=== PATIENT | male | born 1960 | race Caucasian/White ===

== ENCOUNTER → 2017-05-09 | Outpatient (CLI) | payer OTHER | LOC: FIMAGING 17:01 | PROVIDERS: ATTEND Internal Medicine | DX: J98.4 Other disorders of lung (principal) ==

== ENCOUNTER 2018-04-16 07:15 | Day surgery (SDC) | payer OTHER ==
[2018-04-16] MEDS ORDERED: NS 1,000 ML IV ONE (07:17)
[2018-04-16] MEDS ORDERED: MIDAZOLAM 2 MG/2 ML VIAL IVP ONE (07:19)
[2018-04-16] MEDS ORDERED: ATROPINE SULFATE 1 MG/10 ML SYR IVP ONE (07:19)
[2018-04-16] MEDS ORDERED: fentaNYL 100 MCG/2 ML INJ IVP ONE (07:19)
[2018-04-16] MEDS ORDERED: BENZOCAINE UNIT DOSE SPRAY HURRICAINE MM ONE (07:19)
[2018-04-16] MEDS ORDERED: NS 500 ML IV ONE (07:19)
--- NOTE | 2018-04-16 07:54 | PDANEPAE ---
ANE History of Present Illness shimon/cv ANE Past Medical History - Cardiovascular History Hx Hypertension: Yes Hx Arrhythmias: Yes Hx Chest Pain: No Hx Coronary Artery / Peripheral Vascular Disease: No Hx CHF / Valvular Disease: No Hx Palpitations: No - Pulmonary History Hx COPD: No Hx Asthma/Reactive Airway Disease: No Hx Recent Upper Respiratory Infection: Yes Hx Oxygen in Use at Home: No Hx Sleep Apnea: Yes - Neurologic History Hx Cerebrovascular Accident: No Hx Seizures: No Hx Dementia: No - Endocrine History Hx Diabetes: No Hypothyroid: No Hyperthyroid: No Obesity: mild - Renal History Hx Renal Disorders: No - Liver History Hx Hepatic Disorders: No - GI History GERD Comment: gerd controlled with omeprazole ANE Review of Systems Review of Systems: - Exercise capacity Exercise capacity: >=4 METS ANE Patient History - Allergies Allergies/Adverse Reactions: streptomycin [Streptomycin] Allergy (Verified 01/27/13 03:19) Sulfa (Sulfonamide Antibiotics) Allergy (Verified 01/27/13 03:19) - Home Medications Home medications: home medication list seen and reviewed Home Medications: Ascorbic Acid [Vitamin C 500 mg (OTC)] 2,500 mg PO DAILY 01/27/13 [Last Taken ] Aspirin [Aspirin 81mg (OTC)] 81 mg PO DAILY 01/27/13 [Last Taken 01/26/13] Atenolol [Tenormin 50 mg (RX)] 50 mg PO DAILY 01/27/13 [Last Taken 01/26/13] Calcium Citrate W/Vit D [Citracal + D (OTC)] 315 mg PO DAILY 01/27/13 [Last Taken 01/25/13] Eszopiclone [Lunesta] 3 mg PO HS PRN 01/27/13 [Last Taken 01/25/13] Fluticasone Nasal [Flonase Nasal [place] (RX)] 2 sprays NASAL DAILY PRN 01/27/13 [ Last Taken Unknown] Herbals/Supplements -Info Only 1 each PO AD 01/27/13 [Last Taken 01/25/13] Ibuprofen [Motrin 200 mg (OTC)] 400 - 600 mg PO DAILY PRN 01/27/13 [Last Taken 01/24/13] LORazepam [Ativan 0.5 mg (RX)] 0.5 - 1.5 mg PO BID PRN 01/27/13 [Last Taken 20:00 0.5MG] Lisdexamfetamine Dimesylate [Vyvanse] 20 mg PO DAILY PRN 01/27/13 [Last Taken ] Losartan Potassium [Cozaar] 50 mg PO HS 01/27/13 [Last Taken 01/25/13] Metaxalone [Skelaxin 800 mg (RX)] 800 mg PO DAILY PRN 01/27/13 [Last Taken Unknown] Multivitamins [Tab-A-[place]] 1 each PO DAILY 01/27/13 [Last Taken 01/25/13] [place]-3 Fatty Acids [Fish Oil 1000 mg (OTC)] 1,000 mg PO DAILY 01/27/13 [Last Taken 01/25/13] Omeprazole [Prilosec 20 mg] 20 mg PO DAILY 01/27/13 [Last Taken 01/26/13] Tadalafil [Cialis] 5 mg PO HS 01/27/13 [Last Taken 01/25/13] Vitamin B Complex [Vitamin B Complex (OTC)] 1 each PO DAILY 01/27/13 [Last Taken 01/25/13] Vitamin E [Vitamin E 400 units (OTC)] 400 unit PO DAILY 01/27/13 [Last Taken ] amLODIPine BESYLATE [Norvasc] 10 mg PO HS 01/27/13 [Last Taken 01/25/13] buPROPion XL [Wellbutrin 150mg XL] 450 mg PO DAILY 01/27/13 [Last Taken 01/26/13 ] Eliquis 04/16/18 [Last Taken 04/16/18 06:15] Lexapro 04/16/18 [Last Taken Unknown] Losartan Potassium 04/16/18 [Last Taken Unknown] Metoprolol Succinate Xr 04/16/18 [Last Taken Unknown] Voltaren 04/16/18 [Last Taken Unknown] Xanax 04/16/18 [Last Taken Unknown] - NPO status NPO Status: no food or drink >8 hours - Smoking Hx Smoking Status: Former smoker ANE Labs/Vital Signs - Labs Result Diagrams: 04/16/18 07:37 - Vital Signs Height: 170.18 cm Weight: 86.183 kg ANE Physical Exam - Airway Mallampati Score: Class 2 Mouth exam: normal dental/mouth exam - Pulmonary Pulmonary: no respiratory distress - Cardiovascular Cardiovascular: regular rate and rhythym - ASA Status ASA Status: II ANE Anesthesia Plan Anesthesia Plan: GA with mask
[2018-04-16] MEDS ORDERED: PROPOFOL 200 MG/20 ML VIAL ONE (07:56)
[2018-04-16] MEDS ORDERED: LIDOCAINE 2% 2 ML INJ ONE (07:56)
--- NOTE | 2018-04-16 08:02 | PDGENHP ---
History & Physical Chief Complaint: Atrial fibrillation History of Present Illness: Symptomatic atrial fibrillation, he is anticoagulated with Eliquis Relevant Physical Exam: General: A&Ox4, no apparent distress. Respiratory: CTA. Cardiac: S1, S2, irregularly irregular, no edema Cardiorespiratory Assessment: Proceed with BENEDICT and cardioversion as planned for today.
[2018-04-16 08:10] LABS: INR 1.23 (0.83-1.16); PROTIME(PATIENT) 15.7 SEC (12.0-15.0)
--- NOTE | 2018-04-16 08:17 | POSTANESTH ---
Post Anesthetic Evaluation Cardiovascular Status: Normal, Stable Respiratory Status: Normal, Stable Level of Consciousness/Mental Status: Can Participate in Eval Pain Control: Adequate, Prn Tx Ordered Nausea/Vomiting Control: Adequate, Prn Tx Ordered Complications Possibly Related to Anesthesia: None Noted
--- NOTE | 2018-04-16 12:36 | PDTEE1 ---
BENEDICT Cardioversion Procedure Procedure: electrical cardioversion, transesophageal echo Indications: atrial fibrillation Consent: signed and in chart Anticoagulation: eliquis Procedural Details: Pads were placed in anterior-posterior position. BENEDICT probe was advanced and standard images obtained. There is no evidence of left atrial or left atrial appendage thrombus. Synchronized cardioversion attempt #1: 100J Synchronized cardioversion attempt #2: 200J Results: normal sinus rhythm Conclusions: successful BENEDICT cardioversion
--- NOTE | 2018-04-17 06:44 | CPEKG ---
Test Reason : OPEN Blood Pressure : / mmHG Vent. Rate : 110 BPM Atrial Rate : 146 BPM P-R Int : 236 ms QRS Dur : 081 ms QT Int : 383 ms P-R-T Axes : 000 085 033 degrees QTc Int : 519 ms Atrial fibrillation Ventricular premature complex Low voltage, extremity leads Confirmed by Manuel Woodruff ([id number]) on 04/17/2018 6:44:32 AM Referred By: Confirmed By:Manuel Woodruff
--- NOTE | 2018-04-17 06:45 | CPEKG ---
Test Reason : OPEN Blood Pressure : / mmHG Vent. Rate : 078 BPM Atrial Rate : 079 BPM P-R Int : 186 ms QRS Dur : 092 ms QT Int : 420 ms P-R-T Axes : 047 004 035 degrees QTc Int : 479 ms Sinus rhythm Left atrial enlargement Borderline prolonged QT interval Confirmed by Manuel Woodruff ([id number]) on 04/17/2018 6:45:02 AM Referred By: Confirmed By:Manuel Woodruff
== END 2018-04-16 09:16 | disposition home or self-care (01) ==
LOC: FCATH 07:15
PROVIDERS: ATTEND Internal Medicine Cardiovascular Disease
PROC: B245ZZ4 Ultrasonography of Left Heart, Transesophageal (ICD-10-PCS; principal; 2018-04-16)
PROC: 5A2204Z Restoration of Cardiac Rhythm, Single (ICD-10-PCS; principal; 2018-04-16)
DX: I48.1 Persistent atrial fibrillation (principal); I10 Essential (primary) hypertension; E78.00 Pure hypercholesterolemia, unspecified; K21.9 Gastro-esophageal reflux disease without esophagitis; F41.8 Other specified anxiety disorders; N40.0 Benign prostatic hyperplasia without lower urinary tract symptoms; Z79.01 Long term (current) use of anticoagulants
CPT/HCPCS: J2704